=== PATIENT | female | born 1980 | race Caucasian/White ===

== ENCOUNTER 2016-09-02 17:20 | Inpatient (IN) | payer MEDICAID ==
[~2016-09-02] VITALS: Ht 154.9 cm; Wt 48.7 kg
[~2016-09-02 17:20] MED LIST: AMIT10TA PO; ASPI-496 PO; ATOR80TA75 PO; CLOP75TA PO; DIPH25CA61 PO; LISI5TAB7 PO; METO50TA11 PO; PROM25TA10 PO
[2016-09-02] MEDS ORDERED: SODIUM CHLORIDE FLUSH 10ML SYR IVF ONE (18:00)
[2016-09-02] MEDS ORDERED: ASPIRIN 81 MG TABLET CHEW PO ONE (18:00)
[2016-09-02] MEDS ORDERED: NITROGLYCERIN SINGLE TAB 0.4 MG SL PRN (18:00)
[2016-09-02 18:01] LABS: HEMOGLOBIN 13.1 g/dL (11.7-16.4)
[2016-09-02] MEDS ORDERED: NITROGLYCERIN SINGLE TAB 0.4 MG SL ONE (18:08)
[2016-09-02] MEDS ORDERED: ASPIRIN 81 MG TABLET CHEW ONE (18:08)
[2016-09-02 18:10] LABS: BLOOD UREA NITROGEN 14 mg/dL (7-18)
[2016-09-02 18:15] LABS: IS PT STATUS REG ER OR PRE ER? YES
[2016-09-02] MEDS ORDERED: LABETALOL 5MG/ML, 20ML IVPush ONE (18:30)
[2016-09-02] MEDS ORDERED: LABETALOL 5MG/ML, 20ML ONE (18:47)
[2016-09-02] MEDS ORDERED: NITROGLYCERIN OINT 2%, 1GM TP ONE ×2 (19:59→20:00)
[2016-09-02] MEDS ORDERED: ACETAMINOPHEN 325 MG TABLET ONE (19:59)
[2016-09-02] MEDS ORDERED: ONDANSETRON 2MG/ML, 2ML ONE ×2 (19:59→21:06)
[2016-09-02] MEDS ORDERED: ACETAMINOPHEN 325 MG TABLET PO ONE (20:00)
[2016-09-02] MEDS ORDERED: ONDANSETRON 2MG/ML, 2ML IVPush ONE (20:00)
[2016-09-02] MEDS ORDERED: SODIUM CHLORIDE FLUSH 10ML SYR IVF PRN (20:30)
[2016-09-02] MEDS: DIPHENHYDRAMINE 25 MG CAPSULE PO SCH (21:00)
[2016-09-02] MEDS ORDERED: ACETAMINOPHEN 325 MG TABLET PO PRN (21:00)
[2016-09-02] MEDS ORDERED: BISACODYL 10 MG SUPP PR PRN (21:00)
[2016-09-02] MEDS ORDERED: POTASSIUM CHLORIDE 20 MEQ TAB.ER.PRT PO ONE (21:00)
[2016-09-02] MEDS ORDERED: DOCUSATE 100 MG CAPSULE PO PRN (21:00)
[2016-09-02] MEDS ORDERED: NITROGLYCERIN 0.4 MG BOTTLE (25 TABS) SL PRN (21:00)
[2016-09-02] MEDS ORDERED: POTASSIUM CHLORIDE 20 MEQ TAB.ER.PRT ONE (21:06)
[2016-09-02] MEDS ORDERED: MORPHINE SULFATE 4 MG/ML, 1ML ONE (21:06)
[2016-09-02] MEDS: MORPHINE SULFATE 4 MG/ML, 1ML IVPush PRN (21:16)
[2016-09-02] MEDS: SODIUM CHLORIDE 0.9% 1,000 ML IV SCH (21:16)
[2016-09-02] MEDS: ONDANSETRON 2MG/ML, 2ML IVP PRN (21:16)
[2016-09-02 22:04] LABS: IS PT STATUS REG ER OR PRE ER? YES
[2016-09-02 23:40] VITALS: BP 158/107
[2016-09-02 23:51] VITALS: BP 164/104
[2016-09-03] MEDS ORDERED: LABETALOL 5MG/ML, 20ML IVPush ONE
[2016-09-03] MEDS ORDERED: LORazepam 2 MG/ML, 1ML IVPush ONE
[2016-09-03] MEDS: ENOXAPARIN 40 MG/0.4 ML SQ SCH ×2 (00:15→21:09)
[2016-09-03] MEDS: ATORVASTATIN 80 MG TABLET PO SCH ×2 (00:15→21:09)
[2016-09-03 02:09] VITALS: BP 122/77
[2016-09-03 03:16] LABS: HEMOGLOBIN 11.5 g/dL (11.7-16.4)
[2016-09-03 03:25] LABS: ASPARTATE AMINO TRANSFERASE 11 U/L (15-37); BLOOD UREA NITROGEN 12 mg/dL (7-18)
[2016-09-03 03:43] LABS: IS PT STATUS REG ER OR PRE ER? NO
[2016-09-03] MEDS: MORPHINE SULFATE 4 MG/ML, 1ML IVPush PRN ×4 (05:28→23:12)
[2016-09-03] MEDS: ONDANSETRON 2MG/ML, 2ML IVP PRN ×3 (05:28→17:55)
[2016-09-03 06:19] VITALS: BP 103/65
[2016-09-03] MEDS: SODIUM CHLORIDE 0.9% 1,000 ML IV SCH (06:22)
[2016-09-03] MEDS ORDERED: REGADENOSON 0.4 MG/5 ML SYRINGE ONE (07:45)
[2016-09-03 07:48] VITALS: BP 109/74
[2016-09-03] MEDS: DIPHENHYDRAMINE 25 MG CAPSULE PO SCH (08:02)
[2016-09-03] MEDS: ASPIRIN 81 MG TABLET EC PO SCH (08:14)
[2016-09-03] MEDS: LISINOPRIL 5 MG TABLET PO SCH (08:14)
[2016-09-03] MEDS: CLOPIDOGREL 75 MG TABLET PO SCH (08:14)
[2016-09-03] MEDS ORDERED: LORazepam 0.5MG TABLET PO ONE (08:30)
[2016-09-03 13:42] VITALS: BP 113/72
[2016-09-03 20:19] VITALS: BP 111/78
[2016-09-03] MEDS: DRONABINOL 2.5 MG CAPSULE PO SCH (21:00)
[2016-09-04 01:11] VITALS: BP 116/75
[2016-09-04] MEDS: MORPHINE SULFATE 4 MG/ML, 1ML IVPush PRN ×2 (02:59→07:52)
[2016-09-04] MEDS: ONDANSETRON 2MG/ML, 2ML IVP PRN ×2 (02:59→07:52)
[2016-09-04 06:32] VITALS: BP 117/69
[2016-09-04] MEDS: DRONABINOL 2.5 MG CAPSULE PO SCH (07:53)
[2016-09-04] MEDS: CLOPIDOGREL 75 MG TABLET PO SCH (07:53)
[2016-09-04] MEDS: ASPIRIN 81 MG TABLET EC PO SCH (07:53)
[2016-09-04] MEDS: LISINOPRIL 5 MG TABLET PO SCH (07:53)
[2016-09-04] MEDS ORDERED: CLOP75TA PO (11:31)
[2016-09-04] MEDS ORDERED: NITR0.4T SL (11:31)
[2016-09-04] MEDS ORDERED: ALPR-475 PO (11:31)
== END 2016-09-04 13:25 | disposition home or self-care (01) | DRG 303 ==
LOC: ED 20:09 → EDIP 20:51 → 5SO 22:26 → DCLOUNGE 09-04 12:55
PROVIDERS: ADMIT Internal Medicine; ATTEND Internal Medicine
PROC: 0T9B70Z Drainage of Bladder with Drainage Device, Via Natural or Artificial Opening (ICD-10-PCS; principal; 2016-09-03)
DX: I25.9 Chronic ischemic heart disease, unspecified (principal); E78.5 Hyperlipidemia, unspecified; F41.9 Anxiety disorder, unspecified; R73.9 Hyperglycemia, unspecified; E87.6 Hypokalemia; I25.10 Atherosclerotic heart disease of native coronary artery without angina pectoris; D72.829 Elevated white blood cell count, unspecified; F12.90 Cannabis use, unspecified, uncomplicated; F17.210 Nicotine dependence, cigarettes, uncomplicated; I10 Essential (primary) hypertension; I25.2 Old myocardial infarction; Z82.3 Family history of stroke; Z82.49 Family history of ischemic heart disease and other diseases of the circulatory system; Z91.14 Patient's other noncompliance with medication regimen; Z95.5 Presence of coronary angioplasty implant and graft; Z79.82 Long term (current) use of aspirin; Z79.02 Long term (current) use of antithrombotics/antiplatelets; Z79.899 Other long term (current) drug therapy; Z88.0 Allergy status to penicillin; Z88.8 Allergy status to other drugs, medicaments and biological substances; Z71.6 Tobacco abuse counseling
CPT/HCPCS: 36415; 71010; 78452; 80048; 80053; 80061; 81001; 81003; 82040; 82533; 83036; 83735; 83880; 84100; 84443; 84484; 85025; 87086; 93005; 93017; 96374; 96375; J1650; J2405; J2785; Q0167; A9502; C9898; J2060; J7030

== ENCOUNTER 2016-11-13 12:05 | Emergency (ER) | payer MEDICAID ==
[~2016-11-13] VITALS: Ht 154.9 cm; Wt 45.9 kg
[~2016-11-13 12:05] MED LIST changes: +ALPR-475 PO; +NITR0.4T SL
[2016-11-13] MEDS ORDERED: SODIUM CHLORIDE FLUSH 10ML SYR IVF ONE ×2 (12:30→13:30)
[2016-11-13] MEDS ORDERED: ONDANSETRON 2MG/ML, 2ML IVPush ONE (12:30)
[2016-11-13 13:11] LABS: BLOOD UREA NITROGEN 16 mg/dL (7-18)
[2016-11-13 13:17] LABS: IS PT STATUS REG ER OR PRE ER? YES
[2016-11-13] MEDS ORDERED: SODIUM CHLORIDE 0.9% 1,000ML IVBOLUS ONE (13:30)
[2016-11-13] MEDS ORDERED: KETOROLAC 30 MG/1 ML IVPush ONE (13:30)
[2016-11-13] MEDS ORDERED: METOCLOPRAMIDE 5 MG/ML, 2ML IVPush ONE (13:30)
[2016-11-13] MEDS ORDERED: KETOROLAC 30 MG/1 ML ONE (13:34)
[2016-11-13] MEDS ORDERED: METOCLOPRAMIDE 5 MG/ML, 2ML ONE (13:34)
[2016-11-13] MEDS ORDERED: ONDANSETRON 2MG/ML, 2ML ONE (13:34)
[2016-11-13 16:04] VITALS: BP 143/94
== END 2016-11-13 16:06 | disposition home or self-care (01) ==
LOC: ED 13:41
DX: G43.829 Menstrual migraine, not intractable, without status migrainosus (principal); R11.2 Nausea with vomiting, unspecified; I10 Essential (primary) hypertension; E78.5 Hyperlipidemia, unspecified; I25.2 Old myocardial infarction
CPT/HCPCS: 36415; 71010; 80048; 82040; 83880; 84484; 85025; 93005; 93971; 96361; 96374; 96375; 99285; J1885; J2405; J2765; J7030

== ENCOUNTER 2016-11-24 15:16 | Inpatient (IN) | payer MEDICAID ==
[~2016-11-24] VITALS: Ht 154.9 cm; Wt 44.9 kg
[2016-11-24] MEDS ORDERED: SODIUM CHLORIDE 0.9% 1,000 ML IV ONE (15:28)
[2016-11-24] MEDS ORDERED: NITROGLYCERIN 0.4 MG BOTTLE (25 TABS) SL PRN ×2 (15:30→17:00)
[2016-11-24] MEDS ORDERED: DIAZ5TAB PO (15:55)
[2016-11-24] MEDS ORDERED: DIAZEPAM 5 MG TABLET ONE (16:02)
[2016-11-24] MEDS ORDERED: DIAZEPAM 5 MG TABLET PO ONE (16:30)
[2016-11-24] MEDS ORDERED: GUAIFENESIN/DM 200-20MG, 10ML UDC PO PRN (17:00)
[2016-11-24] MEDS ORDERED: DOCUSATE 100 MG CAPSULE PO PRN (17:00)
[2016-11-24] MEDS ORDERED: LORazepam 2 MG/ML, 1ML IVPush PRN (17:00)
[2016-11-24] MEDS ORDERED: hydrALAzine 20 MG/ML, 1ML IVPush PRN (17:00)
[2016-11-24] MEDS ORDERED: ONDANSETRON 2MG/ML, 2ML ONE (17:29)
[2016-11-24] MEDS: ACETAMINOPHEN 325 MG TABLET PO PRN (17:32)
[2016-11-24] MEDS: ONDANSETRON 2MG/ML, 2ML IVPush PRN (17:32)
[2016-11-24 17:42] VITALS: BP 143/87
[2016-11-24 17:47] VITALS: BP 143/87
[2016-11-24 20:48] VITALS: BP 138/87
[2016-11-24] MEDS: morphine SULFATE 10 MG/ML, 1ML IVPush PRN (20:58)
[2016-11-24] MEDS ORDERED: METOPROLOL TARTRATE 25 MG TABLET PO SCH (21:00)
[2016-11-24 21:40] LABS: IS PT STATUS REG ER OR PRE ER? NO
[2016-11-24] MEDS: ATORVASTATIN 80 MG TABLET PO SCH (23:52)
[2016-11-25 02:00] VITALS: BP 138/95
[2016-11-25] MEDS: ONDANSETRON 2MG/ML, 2ML IVPush PRN ×4 (03:25→20:40)
[2016-11-25] MEDS: morphine SULFATE 10 MG/ML, 1ML IVPush PRN ×6 (03:26→23:46)
[2016-11-25 06:21] LABS: BLOOD UREA NITROGEN 17 mg/dL (7-18)
[2016-11-25 06:30] LABS: IS PT STATUS REG ER OR PRE ER? NO
[2016-11-25 07:10] VITALS: BP 112/73
[2016-11-25] MEDS: CLOPIDOGREL 75 MG TABLET PO SCH (09:17)
[2016-11-25] MEDS: METOPROLOL SUCCINATE 50 MG TAB.ER.24H PO SCH (09:17)
[2016-11-25] MEDS: LISINOPRIL 5 MG TABLET PO SCH (09:17)
[2016-11-25] MEDS: HYDROcodone/APAP 5/325 TABLET PO PRN ×3 (09:17→17:53)
[2016-11-25] MEDS: ASPIRIN 81 MG TABLET EC PO SCH (09:18)
[2016-11-25] MEDS: DIAZEPAM 5 MG TABLET PO PRN ×2 (10:08→17:53)
[2016-11-25 11:13] LABS: IS PT STATUS REG ER OR PRE ER? NO
[2016-11-25 20:15] VITALS: BP 105/68
[2016-11-25] MEDS: ATORVASTATIN 80 MG TABLET PO SCH (21:41)
[2016-11-26 02:58] VITALS: BP 107/70
[2016-11-26] MEDS: ACETAMINOPHEN 325 MG TABLET PO PRN (05:18)
[2016-11-26 05:32] LABS: BLOOD UREA NITROGEN 23 mg/dL (7-18)
[2016-11-26 05:49] LABS: IS PT STATUS REG ER OR PRE ER? NO
[2016-11-26] MEDS: morphine SULFATE 10 MG/ML, 1ML IVPush PRN ×2 (06:12→08:22)
[2016-11-26 08:00] VITALS: BP 106/72
[2016-11-26] MEDS: ONDANSETRON 2MG/ML, 2ML IVPush PRN (08:22)
[2016-11-26] MEDS ORDERED: ATOR80TA75 PO (09:22)
[2016-11-26] MEDS ORDERED: METO50TA11 PO (09:22)
[2016-11-26] MEDS ORDERED: ASPI-496 PO (09:22)
[2016-11-26] MEDS ORDERED: NITR0.4T SL (09:22)
[2016-11-26] MEDS ORDERED: CLOP75TA PO (09:22)
[2016-11-26] MEDS ORDERED: DIAZ5TAB PO (09:22)
[2016-11-26] MEDS ORDERED: LISI5TAB7 PO (09:22)
[2016-11-26] MEDS: CLOPIDOGREL 75 MG TABLET PO SCH (12:20)
[2016-11-26] MEDS: ASPIRIN 81 MG TABLET EC PO SCH (12:20)
[2016-11-26] MEDS: LISINOPRIL 5 MG TABLET PO SCH (12:20)
[2016-11-26] MEDS: METOPROLOL SUCCINATE 50 MG TAB.ER.24H PO SCH (12:21)
== END 2016-11-26 12:53 | disposition home or self-care (01) | DRG 313 ==
LOC: ED 16:15 → 5SO 16:16 → ED 16:26
PROVIDERS: ADMIT Internal Medicine; ATTEND Internal Medicine
DX: R07.9 Chest pain, unspecified (principal); E78.5 Hyperlipidemia, unspecified; I10 Essential (primary) hypertension; I25.10 Atherosclerotic heart disease of native coronary artery without angina pectoris; F41.9 Anxiety disorder, unspecified; F12.90 Cannabis use, unspecified, uncomplicated; F41.0 Panic disorder [episodic paroxysmal anxiety]; F17.210 Nicotine dependence, cigarettes, uncomplicated; I25.2 Old myocardial infarction; Z82.49 Family history of ischemic heart disease and other diseases of the circulatory system; Z82.3 Family history of stroke; Z95.5 Presence of coronary angioplasty implant and graft; Z88.0 Allergy status to penicillin; Z88.8 Allergy status to other drugs, medicaments and biological substances; Z71.6 Tobacco abuse counseling
CPT/HCPCS: 36415; 80047; 80048; 80061; 83735; 84100; 84443; 84484; 85025; 85610; 99285; J2405; J2060; J2270

== ENCOUNTER 2016-12-07 00:06 | Emergency (ER) | payer MEDICAID ==
[~2016-12-07] VITALS: Ht 152.4 cm; Wt 50.0 kg
[~2016-12-07 00:06] MED LIST changes: +DIAZ5TAB PO
[2016-12-07 00:53] LABS: BLOOD UREA NITROGEN 14 mg/dL (7-18)
[2016-12-07 00:56] LABS: IS PT STATUS REG ER OR PRE ER? YES
[2016-12-07] MEDS ORDERED: NITROGLYCERIN 0.4 MG BOTTLE (25 TABS) SL PRN (01:00)
[2016-12-07] MEDS ORDERED: NITROGLYCERIN SINGLE TAB 0.4 MG SL ONE (01:27)
[2016-12-07] MEDS ORDERED: IBUPROFEN 200 MG TABLET ONE (02:35)
[2016-12-07 02:46] VITALS: BP 160/98
[2016-12-07] MEDS ORDERED: IBUPROFEN 200 MG TABLET PO ONE (03:00)
== END 2016-12-07 02:48 | disposition home or self-care (01) ==
LOC: ED 00:52
DX: R07.89 Other chest pain (principal); I10 Essential (primary) hypertension; I25.10 Atherosclerotic heart disease of native coronary artery without angina pectoris; E78.5 Hyperlipidemia, unspecified
CPT/HCPCS: 36415; 71010; 80048; 82040; 84484; 85025; 93005

== ENCOUNTER 2016-12-11 12:48 | Emergency (ER) | payer MEDICAID ==
[~2016-12-11] VITALS: Ht 154.9 cm; Wt 45.0 kg
[2016-12-11] MEDS ORDERED: SODIUM CHLORIDE FLUSH 10ML SYR IVF ONE (13:30)
[2016-12-11] MEDS ORDERED: ONDANSETRON 2MG/ML, 2ML ONE ×2 (13:47→16:28)
[2016-12-11] MEDS ORDERED: MORPHINE SULFATE 4 MG/ML, 1ML ONE ×2 (13:47→16:28)
[2016-12-11 13:48] LABS: BLOOD UREA NITROGEN 18 mg/dL (7-18)
[2016-12-11] MEDS: MORPHINE SULFATE 4 MG/ML, 1ML IVPush PRN ×2 (13:51→16:34)
[2016-12-11 13:53] LABS: IS PT STATUS REG ER OR PRE ER? YES
[2016-12-11] MEDS ORDERED: ONDANSETRON 2MG/ML, 2ML IVPush ONE ×2 (14:00→16:30)
[2016-12-11 17:05] LABS: IS PT STATUS REG ER OR PRE ER? YES
[2016-12-11 17:45] VITALS: BP 130/84
== END 2016-12-11 17:47 | disposition home or self-care (01) ==
LOC: ED 16:28
DX: R07.2 Precordial pain (principal); F41.1 Generalized anxiety disorder; I10 Essential (primary) hypertension; I25.110 Atherosclerotic heart disease of native coronary artery with unstable angina pectoris; E78.5 Hyperlipidemia, unspecified; Z87.891 Personal history of nicotine dependence
CPT/HCPCS: 36415; 71010; 80048; 82040; 84484; 85025; 85610; 85730; 93005; 96374; 96375; 96376; 99285; J2405

== ENCOUNTER 2017-02-06 13:34 | Emergency (ER) | payer MEDICAID ==
[~2017-02-06] VITALS: Ht 154.9 cm; Wt 50.0 kg
[~2017-02-06 13:34] MED LIST changes: +ATOR-2 PO; -ATOR80TA75 PO
[2017-02-06] MEDS ORDERED: SODIUM CHLORIDE FLUSH 10ML SYR IVF ONE (14:00)
[2017-02-06] MEDS ORDERED: ONDANSETRON ODT 4 MG ONE (14:09)
[2017-02-06 14:16] LABS: HEMATOCRIT 39.4 % (34.6-47.8); HEMOGLOBIN 12.7 g/dL (11.7-16.4); WHITE BLOOD COUNT 10.6 x10^3/uL (3.4-10)
[2017-02-06 14:24] LABS: BLOOD UREA NITROGEN 18 mg/dL (7-18)
[2017-02-06] MEDS ORDERED: ONDANSETRON ODT 4 MG PO ONE (14:30)
[2017-02-06 14:33] LABS: IS PT STATUS REG ER OR PRE ER? YES
[2017-02-06 14:59] LABS: ANISOCYTOSIS 1+
[2017-02-06 15:31] VITALS: BP 126/84
== END 2017-02-06 15:48 | disposition home or self-care (01) ==
LOC: ED 13:44
DX: R07.89 Other chest pain (principal); I10 Essential (primary) hypertension; I25.10 Atherosclerotic heart disease of native coronary artery without angina pectoris; E78.5 Hyperlipidemia, unspecified; I25.2 Old myocardial infarction
CPT/HCPCS: 36415; 71010; 80048; 82040; 84484; 85025; 85610; 85730; 93005; 99285; Q0162

== ENCOUNTER 2017-12-04 14:08 | Emergency (ER) | payer MEDICAID ==
[~2017-12-04] VITALS: Ht 154.9 cm; Wt 50.4 kg
[~2017-12-04 14:08] MED LIST changes: +METO-264 PO; -METO50TA11 PO
[2017-12-04] MEDS ORDERED: ASPIRIN 81 MG TABLET CHEW ONE (15:15)
[2017-12-04] MEDS ORDERED: MORPHINE SULFATE 4 MG/ML, 1ML ONE (15:15)
[2017-12-04] MEDS ORDERED: ASPIRIN 81 MG TABLET CHEW PO ONE (15:30)
[2017-12-04] MEDS ORDERED: MORPHINE SULFATE 4 MG/ML, 1ML IVPush PRN (15:30)
[2017-12-04] MEDS ORDERED: SODIUM CHLORIDE FLUSH 10ML SYR IVF ONE (15:30)
[2017-12-04 15:53] LABS: BASOPHILS # (AUTO) 0.05 x10^3/uL (0-0.1); BASOPHILS % (AUTO) 1 % (0-1); EOSINOPHILS # (AUTO) 0.02 x10^3/uL (0-0.4); EOSINOPHILS % (AUTO) 0 % (1-7); LYMPHOCYTES # (AUTO) 1.56 x10^3/uL (1-3.4); LYMPHOCYTES % (AUTO) 21 % (22-44); MD NO; MEAN CORPUSCULAR HEMOGLOBIN 31.9 pg (27.0-34.8); MEAN CORPUSCULAR HGB CONC 33.4 g/dL (32.4-35.8); MEAN CORPUSCULAR VOLUME 95.7 fL (80-100); MEAN PLATELET VOLUME 7.5 fL (7.4-10.4); MONOCYTES # (AUTO) 0.27 x10^3/uL (0.2-0.8); MONOCYTES % (AUTO) 4 % (2-9); NEUTROPHILS # (AUTO) 5.46 x10^3/uL (1.8-6.8); NEUTROPHILS % (AUTO) 74 % (42-75); PLATELET COUNT 277 x10^3/uL (130-400); RED CELL DISTRIBUTION WIDTH 18.2 % (9.6-15.2)
[2017-12-04 16:07] LABS: ALANINE AMINOTRANSFERASE 27 U/L (12-78); ALBUMIN 3.2 g/dL (3.4-5.0); ANION GAP 9 mmol/L (5-15); CALCIUM 7.8 mg/dL (8.5-10.1); CHLORIDE 107 mmol/L (98-107); CREATININE 0.48 mg/dL (0.55-1.02)
[2017-12-04 16:12] LABS: ALKALINE PHOSPHATASE 102 U/L (45-117); BILIRUBIN,TOTAL 0.3 mg/dL (0.2-1.0); TOTAL PROTEIN 6.7 g/dL (6.4-8.2); TROPONIN I < 0.015 ng/mL (0.000-0.045)
[2017-12-04 16:16] LABS: D-DIMER 0.38 ug/mlFEU (0.00-0.52); INTERNATIONAL NORMALIZED RATIO 1.02 (0.93-1.1); PROTHROMBIN TIME 10.5 Seconds (9.6-11.5)
[2017-12-04 17:10] VITALS: BP 141/89
== END 2017-12-04 17:24 | disposition left against medical advice (07) ==
LOC: ED 16:40
DX: F10.120 Alcohol abuse with intoxication, uncomplicated (principal); R07.89 Other chest pain; E87.6 Hypokalemia; E78.5 Hyperlipidemia, unspecified; I25.2 Old myocardial infarction; Z95.5 Presence of coronary angioplasty implant and graft; F17.200 Nicotine dependence, unspecified, uncomplicated
CPT/HCPCS: 36415; 71045; 80053; 83690; 83880; 84484; 84703; 85025; 85379; 85610; 85730; 93005; 96374; 99285

== ENCOUNTER 2018-02-16 10:46 | Emergency (ER) | payer MEDICAID ==
[~2018-02-16] VITALS: Ht 157.5 cm; Wt 50.0 kg
[2018-02-16 10:53] VITALS: BP 103/75
[2018-02-16] MEDS ORDERED: MORPHINE SULFATE 4 MG/ML, 1ML IVPush PRN (11:30)
[2018-02-16] MEDS ORDERED: ASPIRIN 81 MG TABLET CHEW PO ONE (11:30)
[2018-02-16] MEDS ORDERED: ONDANSETRON ODT 4 MG ONE (11:32)
[2018-02-16 11:42] LABS: MEAN CORPUSCULAR HEMOGLOBIN 32.4 pg (27.0-34.8); MEAN CORPUSCULAR HGB CONC 33.9 g/dL (32.4-35.8); MEAN CORPUSCULAR VOLUME 95.5 fL (80-100); MEAN PLATELET VOLUME 7.7 fL (7.4-10.4); PLATELET COUNT 375 x10^3/uL (130-400); RED BLOOD COUNT 4.09 x10^6/uL (3.82-5.3)
[2018-02-16 11:50] LABS: ALBUMIN 3.4 g/dL (3.4-5.0); ANION GAP 11 mmol/L (5-15); CALCIUM 8.3 mg/dL (8.5-10.1); CHLORIDE 109 mmol/L (98-107)
[2018-02-16 11:56] LABS: ALANINE AMINOTRANSFERASE 25 U/L (12-78); ALKALINE PHOSPHATASE 88 U/L (45-117); BILIRUBIN,TOTAL 0.1 mg/dL (0.2-1.0); CREATININE 0.71 mg/dL (0.55-1.02); TOTAL PROTEIN 7.3 g/dL (6.4-8.2); TROPONIN I < 0.015 ng/mL (0.000-0.045)
[2018-02-16] MEDS ORDERED: ONDANSETRON ODT 4 MG PO ONE (12:00)
[2018-02-16 12:18] LABS: BASOPHILS # (AUTO) 0.07 x10^3/uL (0-0.1); BASOPHILS % (AUTO) 1 % (0-1); EOSINOPHILS # (AUTO) 0.06 x10^3/uL (0-0.4); EOSINOPHILS % (AUTO) 1 % (1-7); LYMPHOCYTES # (AUTO) 2.02 x10^3/uL (1-3.4); LYMPHOCYTES % (AUTO) 22 % (22-44); MD SCAN; MONOCYTES % (AUTO) 4 % (2-9); NEUTROPHILS # (AUTO) 6.54 x10^3/uL (1.8-6.8); NEUTROPHILS % (AUTO) 72 % (42-75)
== END 2018-02-16 11:45 | disposition left against medical advice (07) ==
LOC: ED 11:39
DX: R07.2 Precordial pain (principal); I25.2 Old myocardial infarction; I10 Essential (primary) hypertension; I25.10 Atherosclerotic heart disease of native coronary artery without angina pectoris; R05 Cough
CPT/HCPCS: 36415; 80053; 83690; 84484; 84703; 85025; 85379; 93005; 99285

== ENCOUNTER 2018-12-18 00:05 | Observation (INO) | payer MEDICAID ==
[~2018-12-18] VITALS: Ht 154.9 cm; Wt 52.1 kg
[~2018-12-18 00:05] MED LIST changes: -NITR0.4T SL; +NITR0.4T41 SL
--- NOTE | 2018-12-18 00:16 | NUR ---
BIB [facility] FROM HOME WITH C/O SH[facility] CP, N/V X 1 EPISDE, FECER AND CHLLS X 4 DAYS. PT WAS AT [facility] AND WORKED UP FOR INFECTED CARDIAC STENT BUT PT LEFT AMA, PT HAS H/X OK X2 WITH STENT X2. 12 LEAD EKG-ST, HR-110, B/P-127/66, 98% R/A, FSBS-124, PT TOK 324 MG [employer], EMT ADMINISTERED ZOFRAN 4 MG AND NS BOLUS 250MG. MONITORS APPLIED, SIDERAILS UP X2, CALL LIGHT WITHIN REACH
[2018-12-18 00:38] LABS: BASOPHILS # (AUTO) 0.03 x10^3/uL (0-0.1); BASOPHILS % (AUTO) 0 % (0-1); EOSINOPHILS # (AUTO) 0.15 x10^3/uL (0-0.4); EOSINOPHILS % (AUTO) 1 % (1-7); LYMPHOCYTES # (AUTO) 1.68 x10^3/uL (1-3.4); LYMPHOCYTES % (AUTO) 14 % (22-44); MD NO; MEAN CORPUSCULAR HEMOGLOBIN 30.3 pg (27.0-34.8); MEAN CORPUSCULAR HGB CONC 33.3 g/dL (32.4-35.8); MONOCYTES # (AUTO) 0.32 x10^3/uL (0.2-0.8); MONOCYTES % (AUTO) 3 % (2-9); NEUTROPHILS # (AUTO) 9.46 x10^3/uL (1.8-6.8); NEUTROPHILS % (AUTO) 81 % (42-75); PLATELET COUNT 284 x10^3/uL (130-400); RED BLOOD COUNT 3.61 x10^6/uL (3.82-5.3); RED CELL DISTRIBUTION WIDTH 17.7 % (9.6-15.2)
[2018-12-18] MEDS ORDERED: KETOROLAC 30 MG/1 ML ONE (00:44)
[2018-12-18] MEDS ORDERED: ACETAMINOPHEN 500 MG TABLET ONE (00:44)
[2018-12-18 00:50] LABS: ALANINE AMINOTRANSFERASE 16 U/L (12-78); ALBUMIN 3.1 g/dL (3.4-5.0); ANION GAP 6 mmol/L (5-15); CALCIUM 8.3 mg/dL (8.5-10.1); CHLORIDE 112 mmol/L (98-107); CREATININE 0.57 mg/dL (0.55-1.02)
--- NOTE | 2018-12-18 00:54 | NUR ---
PT MEDICATED PER MAR
[2018-12-18 00:55] LABS: ALKALINE PHOSPHATASE 67 U/L (45-117); BILIRUBIN,TOTAL 0.3 mg/dL (0.2-1.0); TOTAL PROTEIN 6.6 g/dL (6.4-8.2); TROPONIN I < 0.015 ng/mL (0.000-0.045)
[2018-12-18] MEDS ORDERED: KETOROLAC 30 MG/1 ML IVPush ONE (01:00)
[2018-12-18] MEDS ORDERED: ACETAMINOPHEN 500 MG TABLET PO ONE (01:00)
--- NOTE | 2018-12-18 01:14 | NUR ---
FLOAT RN: PT RESTING IN ROOM. NO ACUTE DISTRESS NOTED. WILL CONTINUE TO MONITOR WHILE PRIMARY RN IS ON BREAK.
--- NOTE | 2018-12-18 02:11 | NUR ---
PT RESTING CALMLY, MONITORS IN PLACE, CALL LIGHT WITHIN REACH, DENIES NEEDS. PT TO BE ADMITTED
[2018-12-18 02:40] VITALS: BP 135/91
[2018-12-18] MEDS ORDERED: NITROGLYCERIN SINGLE TAB 0.4 MG SL PRN (03:00)
[2018-12-18] MEDS ORDERED: hydrALAzine 20 MG/ML, 1ML IVPush PRN (03:00)
[2018-12-18] MEDS ORDERED: OXYcodone IR 5MG TABLET PO PRN (03:00)
[2018-12-18] MEDS ORDERED: ENOXAPARIN 40 MG/0.4 ML SQ SCH (03:00)
[2018-12-18] MEDS ORDERED: POTASSIUM CHLORIDE 20 MEQ TAB.ER.PRT PO ONE (03:00)
[2018-12-18] MEDS: SODIUM CHLORIDE 0.9% 1,000 ML IV SCH ×2 (03:28→16:37)
[2018-12-18] MEDS: MORPHINE SULFATE 4 MG/ML, 1ML IVPush PRN ×2 (03:29→09:19)
[2018-12-18] MEDS: ONDANSETRON 2MG/ML, 2ML IVPush PRN ×2 (03:29→09:18)
[2018-12-18 03:52] LABS: TROPONIN I < 0.015 ng/mL (0.000-0.045)
[2018-12-18 07:08] VITALS: BP 116/78
[2018-12-18] MEDS ORDERED: METOPROLOL SUCCINATE 50 MG TAB.ER.24H PO SCH (09:00)
[2018-12-18] MEDS ORDERED: LISINOPRIL 5 MG TABLET PO SCH (09:00)
[2018-12-18] MEDS ORDERED: CLOPIDOGREL 75 MG TABLET PO SCH (09:00)
[2018-12-18] MEDS ORDERED: ASPIRIN 81 MG TABLET EC PO SCH (09:00)
[2018-12-18 09:09] LABS: TROPONIN I < 0.015 ng/mL (0.000-0.045)
[2018-12-18] MEDS ORDERED: ACETAMINOPHEN 325 MG TABLET PO PRN (12:30)
[2018-12-18] MEDS ORDERED: CALCIUM CARBONATE 500 MG TAB.CHEW PO PRN (12:30)
[2018-12-18 13:36] VITALS: BP 110/74
[2018-12-18] MEDS ORDERED: ATORVASTATIN 80 MG TABLET PO SCH (21:00)
== END 2018-12-18 21:00 | disposition left against medical advice (07) ==
LOC: ED 00:38 → EDIP 01:51 → INTOOBSV 01:51 → 5SO 02:32
PROVIDERS: ADMIT Family Medicine; ATTEND Family Medicine
DX: R07.89 Other chest pain (principal); K85.90 Acute pancreatitis without necrosis or infection, unspecified; D64.9 Anemia, unspecified; E87.6 Hypokalemia; I25.10 Atherosclerotic heart disease of native coronary artery without angina pectoris; I10 Essential (primary) hypertension; F41.9 Anxiety disorder, unspecified; E78.5 Hyperlipidemia, unspecified; F17.200 Nicotine dependence, unspecified, uncomplicated; Z79.01 Long term (current) use of anticoagulants; Z95.5 Presence of coronary angioplasty implant and graft; Z79.82 Long term (current) use of aspirin; Z79.899 Other long term (current) drug therapy
CPT/HCPCS: 36415; 71045; 80053; 83690; 83880; 84484; 84703; 85025; 93005; 96372; 96374; 96375; 96376; 99284; G0378; J1650; J1885; J2270; J2405; J7030